=== PATIENT | male | born 1940 | race Caucasian/White ===

== ENCOUNTER 2023-02-05 07:31 | Inpatient (IN) ==
[2023-02-05 08:18] LABS: Hematocrit 38.8 % (38-53); Mean Corpuscular Hemoglobin 27.7 pg (27-33); Mean Corpuscular Hgb Conc 33.4 g/dL (31-36); Mean Corpuscular Volume 82.9 fL (80-97); Mean Platelet Volume 7.1 fL (7.5-11.2); Platelet Count 304 10^3/uL (150-450); Red Blood Count 4.69 10^6/uL (4.06-5.63); Red Cell Distribution Width 14.7 % (12-17); Venous Bicarbonate HCO3 26.5 mmol/L (24-28)
[2023-02-05 09:12] LABS: ABS Lymphocytes 0.6 10^3/uL (1.0-4.8); ABS Neutrophils 13.4 10^3/uL (1.5-7.6); Lymphocyte % 3.8 %
[2023-02-05 09:23] LABS: Albumin 3.6 g/dL (3.2-5.2); Albumin/Globulin Ratio 0.9 (1-3); Calcium 8.5 mg/dL (8.6-10.3); Creatinine, Serum 1.23 mg/dL (0.67-1.17); Globulin 4.1 g/dL (2-4); Total Bilirubin 0.6 mg/dL (0.2-1.0); Total Protein 7.7 g/dL (6.4-8.9); eGFR CKD-EPI 57.9 (>60)
[2023-02-05 09:40] LABS: High Sensitivity Troponin 1 Hr 547 pg/mL (<20)
[2023-02-05] MEDS ORDERED: NS 0.9% 1000 ml BAG 1,000 ML IV ONE (11:08)
[2023-02-05] MEDS ORDERED: Albuterol HFA INHALER 8 gm MDI INH PRN (11:09)
[2023-02-05] MEDS ORDERED: cefTRIAXone 1 gm/50 mL D5W 1 GM/50 ML BAG IV SCH (11:45)
[2023-02-05] MEDS ORDERED: NS 0.9% 1000 ml BAG 1,000 ML IV SCH (11:45)
[2023-02-05] MEDS ORDERED: Enoxaparin 40 MG/0.4 ML SYR SUBCUT ONE (11:46)
[2023-02-05] MEDS ORDERED: Azithromycin 500 mg/250 ml NS 500 MG/250 ML BAG IVPB SCH (12:00)
[2023-02-05 12:09] LABS: Vitamin D Total 25(OH) 18.2 ng/mL (20-50)
[2023-02-05] MEDS: methylPREDNISolone SOD SUCC 40 mg/ml 1 ml VIAL IV SCH (12:18)
[2023-02-05] MEDS ORDERED: Sulfur Hexaflouride MICROSPHR 25 MG VIAL ONE (13:17)
[2023-02-05] MEDS ORDERED: Cholecalciferol (VIT D3) 1,000 unit TAB PO SCH (14:00)
[2023-02-05] MEDS ORDERED: Furosemide 20 mg/2 ml IV VIAL IV SLOW PU ONE (15:21)
[2023-02-05] MEDS ORDERED: Albuterol/Ipratropium NEB.SOL (2.5/0.5 MG) 3 ML NEB.SOLN INH PRN (16:07)
[2023-02-05] MEDS ORDERED: Albuterol/Ipratropium NEB.SOL (2.5/0.5 MG) 3 ML NEB.SOLN ONE (16:09)
[2023-02-05] MEDS ORDERED: Piperacillin/Tazobac ADVAN 3.375 GM in NS 0.9% 100 ml BAG 100 ML IV ONE (16:24)
[2023-02-05 16:31] LABS: PCO2 Arterial 64 mmHg (35-45); PO2 Arterial 71 mmHg (80-100)
[2023-02-05 16:44] LABS: C Reactive Protein 123.6 mg/L (<8.01)
[2023-02-05] MEDS ORDERED: Vancomycin 1,000 MG in NS 0.9% 250 ml 250 ML IVPB ONE (17:00)
[2023-02-05] MEDS ORDERED: Zosyn per Pharmacy NOTE FOLLOW UP SCH (17:00)
[2023-02-05] MEDS ORDERED: Iodixanol (CONTRAST) 320 MG/ML 100 ML SDV IV ONE ×2 (17:01→18:10)
[2023-02-05 17:25] LABS: PCO2 Arterial 55 mmHg (35-45); PO2 Arterial 176 mmHg (80-100)
[2023-02-05] MEDS ORDERED: Naloxone 0.4 mg VIAL 0.4 mg/ml 1 ml VIAL ONE (17:40)
[2023-02-05] MEDS ORDERED: Succinylcholine 200 mg VIAL 20 mg/ml 10 ml VIAL (200 mg) ONE (17:55)
[2023-02-05] MEDS ORDERED: Rocuronium 50 mg VIAL 10 mg/ml 5 ml VIAL (50 mg) ONE ×2 (17:55→18:02)
[2023-02-05] MEDS ORDERED: Propofol 10 mg/ml 100 ML BTL 1,000 MG/100 ML BTL ONE (17:56)
[2023-02-05] MEDS ORDERED: Etomidate 40 mg/20 ml (2 MG/ML) 20 ml VIAL (40 mg) ONE (18:02)
[2023-02-05] MEDS: Propofol 10 mg/ml 100 ML BTL 1,000 MG/100 ML BTL IV SCH (18:48)
[2023-02-05] MEDS: Pantoprazole VIAL 40 MG VIAL IV SCH (20:05)
[2023-02-05] MEDS: Lactated Ringers 1000 ml BAG 1,000 ML IV SCH (20:08)
[2023-02-05] MEDS: Chlorhexidine MOUTHWASH 0.12% 15 ML UDC SWISH SPIT SCH ×2 (20:14→22:39)
[2023-02-05] MEDS ORDERED: Vancomycin per Pharmacy 1 EA NOTE FOLLOW UP PRN (20:17)
[2023-02-05] MEDS ORDERED: Midazolam 2 mg/2 ml VIAL 1 mg/ml 2 ml VIAL (2 mg) IV SLOW PU ONE (20:27)
[2023-02-05 21:21] LABS: Hematocrit 34.2 % (38-53); Hemoglobin 10.8 g/dL (13.2-16.3)
[2023-02-05] MEDS: ZOSYN 3.375 GM Q8H per EXTENDED INFUSION IV SCH (23:12)
[2023-02-06] MEDS: methylPREDNISolone SOD SUCC 40 mg/ml 1 ml VIAL IV SCH ×3 (00:47→23:47)
[2023-02-06 01:10] LABS: Hematocrit 35.2 % (38-53); Hemoglobin 11.8 g/dL (13.2-16.3)
[2023-02-06] MEDS: Lactated Ringers 1000 ml BAG 1,000 ML IV SCH ×2 (02:45→12:38)
[2023-02-06] MEDS: Chlorhexidine MOUTHWASH 0.12% 15 ML UDC SWISH SPIT SCH ×6 (02:45→22:26)
[2023-02-06 05:29] LABS: Hemoglobin 11.2 g/dL (13.2-16.3); Mean Corpuscular Hemoglobin 27.9 pg (27-33); Mean Corpuscular Hgb Conc 32.8 g/dL (31-36); Mean Platelet Volume 7.8 fL (7.5-11.2); Platelet Count 288 10^3/uL (150-450); White Blood Count 35.6 10^3/uL (3.6-10.2)
[2023-02-06 06:00] LABS: ABS Basophils 0.1 10^3/uL (0.0-0.1); ABS Lymphocytes 1.4 10^3/uL (1.0-4.8); ABS Monocytes 1.5 10^3/uL (0.0-1.1); ABS Neutrophils 32.6 10^3/uL (1.5-7.6); ABS Nucleated RBC 0.01 10^3/ul; Lymphocyte % 3.9 %
[2023-02-06] MEDS: Propofol 10 mg/ml 100 ML BTL 1,000 MG/100 ML BTL IV SCH ×2 (06:21→17:09)
[2023-02-06 06:31] LABS: Calcium 7.5 mg/dL (8.6-10.3); Creatinine, Serum 1.78 mg/dL (0.67-1.17); Magnesium 2.1 mg/dL (1.9-2.7); eGFR CKD-EPI 37.2 (>60)
[2023-02-06] MEDS: ZOSYN 3.375 GM Q8H per EXTENDED INFUSION IV SCH ×3 (07:29→23:42)
[2023-02-06] MEDS: Vancomycin 750 MG in NS 0.9% 250 ML IVPB SCH ×2 (07:29→20:05)
[2023-02-06 07:37] LABS: INR 1.32 (0.88-1.18)
[2023-02-06] MEDS ORDERED: Phenylephrine 40 mcg/mL 10mL (400mcg) SYRINGE ONE (07:54)
[2023-02-06] MEDS ORDERED: fentaNYL 250 mcg/5 ml 50 MCG/ML 5 ml VIAL (250 MCG) ONE (07:56)
[2023-02-06] MEDS ORDERED: Rocuronium 50 mg VIAL 10 mg/ml 5 ml VIAL (50 mg) ONE (07:56)
[2023-02-06 08:06] LABS: TSH Ultra Thyroid Stim Horm 0.75 mcIU/mL (0.34-5.60)
[2023-02-06 08:08] LABS: Free T4 0.97 ng/dL (0.61-1.12)
[2023-02-06] MEDS ORDERED: Lidocaine 1% w EPI 1:200,000 SDV 30 ML VIAL ONE (08:11)
[2023-02-06] MEDS ORDERED: Norepinephrine 16MCG/ML BAGD5W 4,000 MCG/250 ML BAG IV ONE (11:26)
[2023-02-06] MEDS ORDERED: Lactated Ringers 1000 ml BAG 1,000 ML IV ONE ×2 (11:27→13:08)
[2023-02-06 11:46] LABS: Urine Appearance Turbid; Urine Bilirubin Negative (Negative); Urine Blood 3+ (Negative); Urine Color Amber; Urine Glucose Negative (Negative); Urine Ketones Negative (Negative); Urine Nitrite Negative (Negative); Urine Protein 1+(30 mg/dL) (Negative); Urine Urobilinogen Negative (Negative)
[2023-02-06] MEDS: Norepinephrine 16MCG/ML BAGD5W 4,000 MCG/250 ML BAG IV SCH ×2 (11:53→20:00)
[2023-02-06 11:54] LABS: Urine Bacteria Absent (Absent); Urine Red Blood Cell 3+(>10/hpf) (Absent); Urine White Blood Cell 1+(6-10/hpf) (Absent)
[2023-02-06 11:54] LABS: Hematocrit 29.2 % (38-53)
[2023-02-06 12:12] LABS: Urine Specific Gravity > 1.060 (1.002-1.030)
[2023-02-06] MEDS: Azithromycin 500 mg/250 ml NS 500 MG/250 ML BAG IVPB SCH (12:17)
[2023-02-06 13:12] LABS: PCO2 Arterial 49 mmHg (35-45); PO2 Arterial 173 mmHg (80-100)
[2023-02-06] MEDS ORDERED: Albuterol/Ipratropium NEB.SOL (2.5/0.5 MG) 3 ML NEB.SOLN INH PRN (13:52)
[2023-02-06] MEDS ORDERED: Sodium Bicarb 8.4% Vial 50 ML 150 MEQ in D5W 1000 ml BAG 850 ML IV SCH (14:00)
[2023-02-06] MEDS ORDERED: Morphine 2 MG/ML SYRINGE IV PRN (14:08)
[2023-02-06] MEDS ORDERED: Ondansetron 4 mg VIAL 2 MG/ML 2 ml VIAL IV PRN (14:09)
[2023-02-06 15:34] LABS: Hematocrit 27.7 % (38-53)
[2023-02-06 16:16] LABS: Potassium 5.2 mmol/L (3.5-5.0)
[2023-02-06 16:17] LABS: Albumin 2.5 g/dL (3.2-5.2); Albumin/Globulin Ratio 0.9 (1-3); Calcium 6.6 mg/dL (8.6-10.3); Creatinine, Serum 1.99 mg/dL (0.67-1.17); Globulin 2.7 g/dL (2-4); Magnesium 1.9 mg/dL (1.9-2.7); Total Bilirubin 0.6 mg/dL (0.2-1.0); Total Protein 5.2 g/dL (6.4-8.9); eGFR CKD-EPI 32.5 (>60)
[2023-02-06] MEDS: Pantoprazole VIAL 40 MG VIAL IV SCH (17:09)
[2023-02-06 17:40] LABS: PCO2 Arterial 55 mmHg (35-45); PO2 Arterial 119 mmHg (80-100)
[2023-02-06] MEDS: Enoxaparin 30 MG/0.3 ML SYR SUBCUT SCH (20:12)
[2023-02-06 21:49] LABS: Hematocrit 24.7 % (38-53); Hemoglobin 8.2 g/dL (13.2-16.3)
[2023-02-07] MEDS: Chlorhexidine MOUTHWASH 0.12% 15 ML UDC SWISH SPIT SCH ×3 (02:14→08:38)
[2023-02-07 04:30] LABS: ABS Lymphocytes 1.4 10^3/uL (1.0-4.8); ABS Neutrophils 15.5 10^3/uL (1.5-7.6); ABS Nucleated RBC 0.01 10^3/ul; Hematocrit 23.9 % (38-53); Hemoglobin 8.1 g/dL (13.2-16.3); Mean Corpuscular Hemoglobin 28.2 pg (27-33); Mean Corpuscular Hgb Conc 33.8 g/dL (31-36); Mean Corpuscular Volume 83.5 fL (80-97); Mean Platelet Volume 7.9 fL (7.5-11.2); Nucleated Red Blood Cells % 0.1 /100 WBC (0.0-0.4); Platelet Count 199 10^3/uL (150-450); Red Blood Count 2.87 10^6/uL (4.06-5.63); Red Cell Distribution Width 14.6 % (12-17); White Blood Count 17.9 10^3/uL (3.6-10.2)
[2023-02-07 05:03] LABS: Creatinine, Serum 2.77 mg/dL (0.67-1.17); Magnesium 1.9 mg/dL (1.9-2.7); Potassium 4.8 mmol/L (3.5-5.0); eGFR CKD-EPI 21.9 (>60)
[2023-02-07 05:05] LABS: Calcium 6.1 mg/dL (8.6-10.3)
[2023-02-07] MEDS ORDERED: Calcium Gluconate 2 GM in NS 0.9% 100 ml BAG 100 ML IV ONE (05:15)
[2023-02-07] MEDS ORDERED: Magnesium Sulfate 2 gm BAG 2 GM/50 ML BAG IVPB ONE (07:20)
[2023-02-07] MEDS ORDERED: Vancomycin Trough Check NOTE FOLLOW UP ONE (07:30)
[2023-02-07] MEDS: ZOSYN 3.375 GM Q8H per EXTENDED INFUSION IV SCH ×2 (08:00→15:26)
[2023-02-07] MEDS ORDERED: Furosemide 40 mg/4 ml IV VIAL IV ONE (08:04)
[2023-02-07 08:05] LABS: PCO2 Arterial 46 mmHg (35-45); PO2 Arterial 133 mmHg (80-100)
[2023-02-07] MEDS: Vancomycin 750 MG in NS 0.9% 250 ML IVPB SCH (08:29)
[2023-02-07] MEDS: Azithromycin 500 mg/250 ml NS 500 MG/250 ML BAG IVPB SCH (10:31)
[2023-02-07] MEDS: Enoxaparin 30 MG/0.3 ML SYR SUBCUT SCH (21:35)
[2023-02-07] MEDS: Pantoprazole VIAL 40 MG VIAL IV SCH (21:35)
[2023-02-08 04:47] LABS: Hematocrit 22.5 % (38-53); Hemoglobin 7.6 g/dL (13.2-16.3); Mean Corpuscular Hemoglobin 28.2 pg (27-33); Mean Corpuscular Hgb Conc 33.7 g/dL (31-36); Mean Corpuscular Volume 83.5 fL (80-97); Mean Platelet Volume 8.2 fL (7.5-11.2); Platelet Count 171 10^3/uL (150-450); Red Blood Count 2.69 10^6/uL (4.06-5.63); Red Cell Distribution Width 14.7 % (12-17); White Blood Count 14.2 10^3/uL (3.6-10.2)
[2023-02-08 05:09] LABS: ABS Lymphocytes 1.2 10^3/uL (1.0-4.8); ABS Monocytes 1.1 10^3/uL (0.0-1.1); ABS Neutrophils 11.9 10^3/uL (1.5-7.6); ABS Nucleated RBC 0.01 10^3/ul; Lymphocyte % 8.2 %; Nucleated Red Blood Cells % 0.1 /100 WBC (0.0-0.4)
[2023-02-08 05:19] LABS: Calcium 6.8 mg/dL (8.6-10.3); Creatinine, Serum 3.48 mg/dL (0.67-1.17); Magnesium 2.8 mg/dL (1.9-2.7); Potassium 4.7 mmol/L (3.5-5.0); eGFR CKD-EPI 16.6 (>60)
[2023-02-08] MEDS ORDERED: Albumin Human 5% 12.5 GM/250 ML BTL IV ONE (08:04)
[2023-02-08] MEDS ORDERED: Lactated Ringers 1000 ml BAG 1,000 ML IV ONE (08:04)
[2023-02-08] MEDS: ZOSYN 3.375 GM Q8H per EXTENDED INFUSION IV SCH ×2 (08:42→21:57)
[2023-02-08] MEDS: Acetaminophen IV 1 GM/100ML 1,000 MG/100 ML BAG IV PRN (11:39)
[2023-02-08] MEDS: Azithromycin 500 mg/250 ml NS 500 MG/250 ML BAG IVPB SCH (13:07)
[2023-02-08] MEDS ORDERED: Chlorhexidine MOUTHWASH 0.12% 15 ML UDC SWISH SPIT SCH (14:00)
[2023-02-08] MEDS: Chlorhexidine MOUTHWASH 0.12% 15 ML UDC SWISH SPIT SCH ×2 (15:01→21:56)
[2023-02-08] MEDS: Lactated Ringers 1000 ml BAG 1,000 ML IV SCH (17:41)
[2023-02-08] MEDS: Enoxaparin 30 MG/0.3 ML SYR SUBCUT SCH (21:59)
[2023-02-09 06:29] LABS: ABS Lymphocytes 1.7 10^3/uL (1.0-4.8); ABS Nucleated RBC 0.01 10^3/ul; Hematocrit 23.6 % (38-53); Lymphocyte % 15.6 %; Mean Corpuscular Hemoglobin 28.4 pg (27-33); Mean Corpuscular Volume 83.6 fL (80-97); Mean Platelet Volume 7.9 fL (7.5-11.2); Nucleated Red Blood Cells % 0.1 /100 WBC (0.0-0.4); Platelet Count 198 10^3/uL (150-450); Red Blood Count 2.82 10^6/uL (4.06-5.63); Red Cell Distribution Width 14.5 % (12-17); White Blood Count 10.6 10^3/uL (3.6-10.2)
[2023-02-09 06:55] LABS: Calcium 7.3 mg/dL (8.6-10.3); Creatinine, Serum 2.21 mg/dL (0.67-1.17); Magnesium 2.8 mg/dL (1.9-2.7); Phosphorus 3.3 mg/dL (2.5-5.0); eGFR CKD-EPI 28.7 (>60)
[2023-02-09] MEDS: ZOSYN 3.375 GM Q8H per EXTENDED INFUSION IV SCH ×2 (10:34→21:40)
[2023-02-09] MEDS: Chlorhexidine MOUTHWASH 0.12% 15 ML UDC SWISH SPIT SCH ×3 (11:24→21:40)
[2023-02-09] MEDS: Enoxaparin 30 MG/0.3 ML SYR SUBCUT SCH (21:40)
[2023-02-10] MEDS: Lactated Ringers 1000 ml BAG 1,000 ML IV SCH ×2 (03:53→14:48)
[2023-02-10 06:45] LABS: ABS Eosinophils 0.1 10^3/uL (0.0-0.5); ABS Lymphocytes 1.5 10^3/uL (1.0-4.8); ABS Monocytes 0.9 10^3/uL (0.0-1.1); ABS Neutrophils 5.5 10^3/uL (1.5-7.6); ABS Nucleated RBC 0.01 10^3/ul; Eosinophil % 1.3 %; Hematocrit 22.9 % (38-53); Hemoglobin 7.8 g/dL (13.2-16.3); Lymphocyte % 18.6 %; Mean Corpuscular Hemoglobin 28.4 pg (27-33); Mean Corpuscular Hgb Conc 33.9 g/dL (31-36); Mean Corpuscular Volume 83.9 fL (80-97); Mean Platelet Volume 7.8 fL (7.5-11.2); Nucleated Red Blood Cells % 0.1 /100 WBC (0.0-0.4); Platelet Count 192 10^3/uL (150-450); Red Blood Count 2.73 10^6/uL (4.06-5.63); Red Cell Distribution Width 14.3 % (12-17)
[2023-02-10 07:31] LABS: Calcium 7.3 mg/dL (8.6-10.3); Creatinine, Serum 1.17 mg/dL (0.67-1.17); Potassium 4.3 mmol/L (3.5-5.0); eGFR CKD-EPI 61.5 (>60)
[2023-02-10] MEDS: Chlorhexidine MOUTHWASH 0.12% 15 ML UDC SWISH SPIT SCH ×3 (09:17→20:12)
[2023-02-10] MEDS ORDERED: guaiFENesin 100 mg/5 ml LIQ unit dose cup NG TUBE PRN (13:32)
[2023-02-10] MEDS: Enoxaparin 30 MG/0.3 ML SYR SUBCUT SCH (20:13)
[2023-02-11] MEDS: Lactated Ringers 1000 ml BAG 1,000 ML IV SCH ×3 (01:13→21:41)
[2023-02-11 06:36] LABS: Hematocrit 23.8 % (38-53); Mean Corpuscular Hemoglobin 28.4 pg (27-33); Mean Corpuscular Hgb Conc 33.7 g/dL (31-36); Mean Corpuscular Volume 84.3 fL (80-97); Mean Platelet Volume 8.2 fL (7.5-11.2); Platelet Count 244 10^3/uL (150-450); Red Blood Count 2.82 10^6/uL (4.06-5.63); Red Cell Distribution Width 14.4 % (12-17); White Blood Count 9.9 10^3/uL (3.6-10.2)
[2023-02-11 07:20] LABS: Calcium 7.8 mg/dL (8.6-10.3); Creatinine, Serum 0.9 mg/dL (0.67-1.17); Potassium 4.7 mmol/L (3.5-5.0); eGFR CKD-EPI 84.2 (>60)
[2023-02-11] MEDS: Chlorhexidine MOUTHWASH 0.12% 15 ML UDC SWISH SPIT SCH ×3 (11:33→21:22)
[2023-02-11] MEDS: guaiFENesin 100 mg/5 ml LIQ unit dose cup NG TUBE SCH ×2 (18:39→23:13)
[2023-02-11] MEDS: Enoxaparin 30 MG/0.3 ML SYR SUBCUT SCH (21:23)
[2023-02-12] MEDS: guaiFENesin 100 mg/5 ml LIQ unit dose cup NG TUBE SCH ×3 (06:21→18:48)
[2023-02-12 07:39] LABS: ABS Eosinophils 0.7 10^3/uL (0.0-0.5); ABS Lymphocytes 1.7 10^3/uL (1.0-4.8); ABS Monocytes 1.4 10^3/uL (0.0-1.1); ABS Nucleated RBC 0.01 10^3/ul; Eosinophil % 6.8 %; Hematocrit 23.2 % (38-53); Hemoglobin 7.8 g/dL (13.2-16.3); Lymphocyte % 15.4 %; Mean Corpuscular Hemoglobin 28.4 pg (27-33); Mean Corpuscular Hgb Conc 33.7 g/dL (31-36); Mean Corpuscular Volume 84.2 fL (80-97); Mean Platelet Volume 8.2 fL (7.5-11.2); Nucleated Red Blood Cells % 0.1 /100 WBC (0.0-0.4); Platelet Count 322 10^3/uL (150-450); Red Blood Count 2.76 10^6/uL (4.06-5.63); Red Cell Distribution Width 14.5 % (12-17); White Blood Count 10.9 10^3/uL (3.6-10.2)
[2023-02-12 08:31] LABS: Calcium 7.9 mg/dL (8.6-10.3); Creatinine, Serum 0.89 mg/dL (0.67-1.17); Magnesium 1.8 mg/dL (1.9-2.7); Potassium 4.8 mmol/L (3.5-5.0); eGFR CKD-EPI 84.5 (>60)
[2023-02-12] MEDS: Chlorhexidine MOUTHWASH 0.12% 15 ML UDC SWISH SPIT SCH ×3 (12:20→22:20)
[2023-02-12] MEDS: Albuterol/Ipratropium NEB.SOL (2.5/0.5 MG) 3 ML NEB.SOLN INH SCH ×2 (17:59→19:33)
[2023-02-12] MEDS: Acetaminophen IV 1 GM/100ML 1,000 MG/100 ML BAG IV PRN (18:44)
[2023-02-12] MEDS: Mometasone/Formoter 100/5 MDI INH SCH (19:34)
[2023-02-12] MEDS: Enoxaparin 30 MG/0.3 ML SYR SUBCUT SCH (22:21)
[2023-02-13] MEDS: guaiFENesin 100 mg/5 ml LIQ unit dose cup NG TUBE SCH ×4 (00:05→18:11)
[2023-02-13 06:23] LABS: Hematocrit 27.8 % (38-53); Hemoglobin 9.3 g/dL (13.2-16.3); Mean Corpuscular Hgb Conc 33.4 g/dL (31-36); Mean Corpuscular Volume 83.7 fL (80-97); Mean Platelet Volume 8.4 fL (7.5-11.2); Platelet Count 399 10^3/uL (150-450); Red Blood Count 3.32 10^6/uL (4.06-5.63); Red Cell Distribution Width 14.6 % (12-17); White Blood Count 11.4 10^3/uL (3.6-10.2)
[2023-02-13 06:57] LABS: Creatinine, Serum 0.92 mg/dL (0.67-1.17); Potassium 4.8 mmol/L (3.5-5.0)
[2023-02-13 07:17] LABS: ABS Eosinophils 0.8 10^3/uL (0.0-0.5); ABS Lymphocytes 1.6 10^3/uL (1.0-4.8); ABS Monocytes 1.6 10^3/uL (0.0-1.1); ABS Neutrophils 7.5 10^3/uL (1.5-7.6); ABS Nucleated RBC 0.02 10^3/ul; Lymphocyte % 13.8 %; Nucleated Red Blood Cells % 0.2 /100 WBC (0.0-0.4); RBC Morphology Normal (Normal)
[2023-02-13] MEDS: Albuterol/Ipratropium NEB.SOL (2.5/0.5 MG) 3 ML NEB.SOLN INH SCH ×3 (07:35→18:56)
[2023-02-13] MEDS: Mometasone/Formoter 100/5 MDI INH SCH ×2 (07:35→18:56)
[2023-02-13] MEDS: Chlorhexidine MOUTHWASH 0.12% 15 ML UDC SWISH SPIT SCH ×3 (08:21→20:37)
[2023-02-13] MEDS: Acetaminophen IV 1 GM/100ML 1,000 MG/100 ML BAG IV PRN (09:57)
[2023-02-13] MEDS ORDERED: Albuterol/Ipratropium NEB.SOL (2.5/0.5 MG) 3 ML NEB.SOLN INH SCH (19:00)
[2023-02-13] MEDS: Enoxaparin 30 MG/0.3 ML SYR SUBCUT SCH (20:37)
[2023-02-14] MEDS: guaiFENesin 100 mg/5 ml LIQ unit dose cup NG TUBE SCH ×5 (00:23→23:43)
[2023-02-14] MEDS: Albuterol/Ipratropium NEB.SOL (2.5/0.5 MG) 3 ML NEB.SOLN INH SCH ×4 (01:17→18:43)
[2023-02-14 06:08] LABS: Hematocrit 27.6 % (38-53); Hemoglobin 9.1 g/dL (13.2-16.3); Mean Corpuscular Hemoglobin 28.1 pg (27-33); Mean Corpuscular Volume 85.3 fL (80-97); Mean Platelet Volume 8.5 fL (7.5-11.2); Platelet Count 418 10^3/uL (150-450); Red Blood Count 3.23 10^6/uL (4.06-5.63); Red Cell Distribution Width 14.4 % (12-17)
[2023-02-14 06:12] LABS: ABS Basophils 0.1 10^3/uL (0.0-0.1); ABS Eosinophils 0.3 10^3/uL (0.0-0.5); ABS Lymphocytes 1.5 10^3/uL (1.0-4.8); ABS Monocytes 2.2 10^3/uL (0.0-1.1); ABS Nucleated RBC 0.01 10^3/ul; Lymphocyte % 10.7 %
[2023-02-14 06:30] LABS: Calcium 8.3 mg/dL (8.6-10.3); Creatinine, Serum 0.97 mg/dL (0.67-1.17); Potassium 4.8 mmol/L (3.5-5.0)
[2023-02-14] MEDS: Mometasone/Formoter 100/5 MDI INH SCH ×2 (06:50→18:43)
[2023-02-14] MEDS ORDERED: Piperacillin/Tazobac ADVAN 3.375 GM in NS 0.9% 100 ml BAG 100 ML IV ONE (08:01)
[2023-02-14] MEDS ORDERED: Zosyn per Pharmacy NOTE FOLLOW UP SCH (09:00)
[2023-02-14] MEDS: Chlorhexidine MOUTHWASH 0.12% 15 ML UDC SWISH SPIT SCH ×3 (09:41→20:51)
[2023-02-14] MEDS: Fluconazole 400 MG IVPREMIX 400 MG/200 ML BAG IVPB SCH (12:55)
[2023-02-14] MEDS: ZOSYN 3.375 GM Q8H per EXTENDED INFUSION IV SCH ×2 (15:30→21:52)
[2023-02-14] MEDS: Enoxaparin 30 MG/0.3 ML SYR SUBCUT SCH (20:51)
[2023-02-15] MEDS: Albuterol/Ipratropium NEB.SOL (2.5/0.5 MG) 3 ML NEB.SOLN INH SCH ×4 (01:01→18:50)
[2023-02-15] MEDS: ZOSYN 3.375 GM Q8H per EXTENDED INFUSION IV SCH ×3 (05:24→22:13)
[2023-02-15] MEDS: guaiFENesin 100 mg/5 ml LIQ unit dose cup NG TUBE SCH ×3 (05:26→18:09)
[2023-02-15 06:32] LABS: ABS Basophils 0.1 10^3/uL (0.0-0.1); ABS Lymphocytes 0.9 10^3/uL (1.0-4.8); ABS Monocytes 1.4 10^3/uL (0.0-1.1); ABS Neutrophils 11.5 10^3/uL (1.5-7.6); ABS Nucleated RBC 0.01 10^3/ul; Eosinophil % 0.3 %; Hematocrit 24.7 % (38-53); Hemoglobin 8.2 g/dL (13.2-16.3); Lymphocyte % 6.2 %; Mean Corpuscular Hemoglobin 28.3 pg (27-33); Mean Corpuscular Volume 85.8 fL (80-97); Mean Platelet Volume 8.2 fL (7.5-11.2); Nucleated Red Blood Cells % 0.1 /100 WBC (0.0-0.4); Platelet Count 401 10^3/uL (150-450); Red Blood Count 2.88 10^6/uL (4.06-5.63); Red Cell Distribution Width 14.7 % (12-17); White Blood Count 13.9 10^3/uL (3.6-10.2)
[2023-02-15 06:45] LABS: Calcium 8.1 mg/dL (8.6-10.3); Potassium 4.5 mmol/L (3.5-5.0)
[2023-02-15 06:51] LABS: Creatinine, Serum 1.01 mg/dL (0.67-1.17); eGFR CKD-EPI 73.3 (>60)
[2023-02-15] MEDS: Mometasone/Formoter 100/5 MDI INH SCH ×2 (07:09→18:50)
[2023-02-15] MEDS: Chlorhexidine MOUTHWASH 0.12% 15 ML UDC SWISH SPIT SCH ×3 (08:39→20:41)
[2023-02-15] MEDS ORDERED: Albuterol HFA INHALER 8 gm MDI INH PRN (11:06)
[2023-02-15] MEDS: Fluconazole 400 MG IVPREMIX 400 MG/200 ML BAG IVPB SCH (12:10)
[2023-02-15 16:10] LABS: Hematocrit 26.5 % (38-53); Hemoglobin 8.8 g/dL (13.2-16.3)
[2023-02-15] MEDS: Enoxaparin 40 MG/0.4 ML SYR SUBCUT SCH (20:40)
[2023-02-16] MEDS: Albuterol/Ipratropium NEB.SOL (2.5/0.5 MG) 3 ML NEB.SOLN INH SCH (00:41)
[2023-02-16] MEDS: guaiFENesin 100 mg/5 ml LIQ unit dose cup NG TUBE SCH ×4 (01:19→18:17)
[2023-02-16] MEDS: ZOSYN 3.375 GM Q8H per EXTENDED INFUSION IV SCH ×3 (05:48→21:53)
[2023-02-16] MEDS: Mometasone/Formoter 100/5 MDI INH SCH ×2 (07:03→19:59)
[2023-02-16] MEDS: Chlorhexidine MOUTHWASH 0.12% 15 ML UDC SWISH SPIT SCH ×3 (09:07→20:24)
[2023-02-16] MEDS: SPIRIVA Respimat (tiotropium) 2.5 mcg/inh Inhaler INH SCH (11:19)
[2023-02-16] MEDS: Fluconazole 400 MG IVPREMIX 400 MG/200 ML BAG IVPB SCH (13:42)
[2023-02-16] MEDS: Enoxaparin 40 MG/0.4 ML SYR SUBCUT SCH (20:24)
[2023-02-17] MEDS: guaiFENesin 100 mg/5 ml LIQ unit dose cup NG TUBE SCH ×4 (00:52→17:23)
[2023-02-17] MEDS: ZOSYN 3.375 GM Q8H per EXTENDED INFUSION IV SCH (05:46)
[2023-02-17] MEDS: SPIRIVA Respimat (tiotropium) 2.5 mcg/inh Inhaler INH SCH (07:15)
[2023-02-17] MEDS: Mometasone/Formoter 100/5 MDI INH SCH ×2 (07:15→19:38)
[2023-02-17] MEDS: Chlorhexidine MOUTHWASH 0.12% 15 ML UDC SWISH SPIT SCH ×3 (08:46→21:41)
[2023-02-17] MEDS ORDERED: methylPREDNISolone SOD SUCC 40 mg/ml 1 ml VIAL IV ONE (09:29)
[2023-02-17 16:01] LABS: Rapid COVID-19 Molecular Undetected (Undetected)
[2023-02-17] MEDS: Famotidine IV 10 MG/ML 2 ml VIAL (20 mg) IV SLOW PU SCH (21:40)
[2023-02-17] MEDS: Enoxaparin 40 MG/0.4 ML SYR SUBCUT SCH (21:41)
[2023-02-17] MEDS: guaiFENesin 100 mg/5 ml LIQ unit dose cup PO SCH (23:57)
[2023-02-18] MEDS: guaiFENesin 100 mg/5 ml LIQ unit dose cup PO SCH (05:06)
[2023-02-18] MEDS: Mometasone/Formoter 100/5 MDI INH SCH (08:13)
[2023-02-18] MEDS: SPIRIVA Respimat (tiotropium) 2.5 mcg/inh Inhaler INH SCH (08:14)
[2023-02-18] MEDS: Famotidine IV 10 MG/ML 2 ml VIAL (20 mg) IV SLOW PU SCH (10:55)
[2023-02-18 11:52] VITALS: BP 139/59
[2023-02-18] MEDS: Chlorhexidine MOUTHWASH 0.12% 15 ML UDC SWISH SPIT SCH (12:08)
== END 2023-02-18 13:03 | DRG 853 ==
LOC: ED 07:31 → EDHOLD 09:51 → SUATTDRO 09:51 → EDHOLD 19:36 → ICU 20:11 → SSU 02-08 16:54 → MEDTELE 02-14 06:37
PROVIDERS: ADMIT Internal Medicine; ATTEND Internal Medicine